=== PATIENT | female | born 1935 | race Caucasian/White ===

== ENCOUNTER 2019-04-07 06:46 | Day surgery (SDC) | payer OTHER ==
[2019-04-07] VITALS (13 sets, daily range): BP systolic 145–181; BP diastolic 64–82; PULSE 52–58; RESP 10–26; Ht 147.3 cm; Wt 90.0 kg
[~2019-04-07] VITALS: Ht 147.3 cm; Wt 90.0 kg
[~2019-04-07 06:46] MED LIST: ATOR20TA38 PO; FELO5TAB35 PO; FOLI-49 PO; LOSA1TAB22 PO
--- NOTE | 2019-04-07 07:59 | PREAC ---
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 Hard of hearing. ) GI: Obesity Surgery & Anesthesia Issues No known issue Meds Anticoagulation: No Beta Leon within 24 hr: No Reason Beta Leon not given: Pt. not on B-Leon Reported Medications Atorvastatin Calcium* (Atorvastatin Calcium*) 20 Mg Tablet, 20 MG PO QHS, #30 TAB 04/07/19 Folic Acid* (Folic Acid*) 1 Mg Tablet, 1 MG PO DAILY, TAB 04/07/19 Felodipine* (Felodipine*) 5 Mg Tab.sr.24h, 5 MG PO DAILY, TAB.SA 04/07/19 Losartan-Hydrochlorothiazide (Losartan-HCTZ) 50-12.5 Mg Tab, 0.25 TAB PO DAILY, TAB 04/07/19 Current Medications Moxifloxacin HCl (Vigamox) 1 drop ONCE ONCE OPER ; Start 04/07/19 at 08:00; Stop 04/07/19 at 08:01 Cyclopentolate HCl (Cyclogyl 2% Oph) 1 drop Q5 MIN X 3 OPER ; Start 04/07/19 at 08:00 Phenylephrine HCl (Ak-Dilate 10%) 1 drop Q5 MIN X3 OPER ; Start 04/07/19 at 08:00 Nepafenac ([place] Oph) 1 drop Q5 MIN X3 OPER ; Start 04/07/19 at 08:00 Meds reviewed: Yes Allergies Coded Allergies: Penicillins (Verified Allergy, Intermediate, 04/07/19) Allergies Reviewed: Yes Labs/Studies Labs Reviewed: Reviewed by anesthesiologist test: N/A Studies: ECG Pre-procedure Exam Airway: Adequate mouth opening, Adequate thyromental dist Mallampati: Mallampati II Teeth: Normal Lung: Normal Heart: Normal ASA Physical Status ASA physical status: 3 Emergency: None Planned Anesthetic General/MAC: MAC, TIVA Planned Pain Management Parenteral pain med, Local by surgeon Pre-operative Attestations Prior to commencing anesthesia and surgery, the patient was re-evaluated, there was verification of: *The patient's identity *The results of appropriate recent lab work and preoperative vital signs *The above evaluation not changing prior to induction *Anesthetic plan, risk benefits, alternative and complications discussed with patient/family; questions answered; patient/family understands, accepts and wishes to proceed. LINDA PIERRE Apr 07, 2019 07:59
[2019-04-07] MEDS ORDERED: hydrALAzine 20 MG INJ IV PRN (08:00)
[2019-04-07] MEDS ORDERED: LABETALOL HCL 20MG INJ IV PRN (08:00)
[2019-04-07] MEDS ORDERED: FENTAnyl 50 MCG/ML VIAL IV PRN ×3 (08:00)
[2019-04-07] MEDS ORDERED: CYCLOPENTOLATE 2% 2 ML OPH OPER SCH (08:00)
[2019-04-07] MEDS ORDERED: OXYCODONE/ACETAMINOPHEN (5/325) TAB PO PRN ×2 (08:00)
[2019-04-07] MEDS ORDERED: PHENYLephrine 10% 5 ML OPH OPER SCH (08:00)
[2019-04-07] MEDS ORDERED: MOXIFLOXACIN 0.5% 3 ML OPH OPER ONE (08:00)
[2019-04-07] MEDS ORDERED: NEPAFENAC 0.1% 3 ML OPH OPER SCH (08:00)
[2019-04-07] MEDS ORDERED: LIDOCAINE 1% (MPF) 30 ML INJ ONE (08:28)
[2019-04-07] MEDS ORDERED: NA BICARB 50 MEQ/50 ML VIAL ONE (08:29)
[2019-04-07] MEDS ORDERED: NA HYALURONATE/CHONDROITIN 0.5 ML SYG ONE (08:29)
[2019-04-07] MEDS ORDERED: TIMOLOL 0.5% 5 ML OPH ONE (08:29)
[2019-04-07] MEDS ORDERED: CARBACHOL 0.01% 1.5 ML OPH INJ ONE (08:29)
[2019-04-07] MEDS ORDERED: EPINEPHrine 1 MG INJ ONE (08:29)
[2019-04-07] MEDS ORDERED: TETRACAINE 0.5% 4 ML OPH ONE (08:29)
[2019-04-07] MEDS ORDERED: LIDOCAINE /PF 2% 10 ML AMPUL ONE (08:29)
--- NOTE | 2019-04-07 08:35 | HPN ---
Date/Time of Note Date/Time of Note DATE: 04/07/19 TIME: 08:35 Interval H&P Admission Note Pt. seen H&P reviewed: No system changes RICH SWANN MD Apr 07, 2019 08:35
[2019-04-07] MEDS ORDERED: FENTAnyl 50 MCG/ML VIAL ONE (09:01)
[2019-04-07] MEDS ORDERED: PROPOFOL 20 ML ONE (09:01)
[2019-04-07] MEDS ORDERED: ONDANSETRON 4 MG INJ ONE ×2 (09:33→10:46)
[2019-04-07] MEDS ORDERED: BUPIVACAINE 0.75% (MPF) 10 ML INJ INJ ONE (09:45)
--- NOTE | 2019-04-07 10:14 | SIPON ---
Date/Time of Note Date/Time of Note DATE: 04/07/19 TIME: 10:07 Operative Report Preoperative Diagnosis nuclear sclerotic cataract right eye Postoperative Diagnosis same Operation/Procedure Performed KPE with posterior chamber lens Surgeon see signature line assisted living associate none Anesthesia: general, MAC Estimated blood loss: none Transfusion Required none Specimen none Grafts/Implants posterior chamber lens implant Complications none RICH SWANN MD Apr 07, 2019 10:14
--- NOTE | 2019-04-07 10:30 | PAC ---
Date/Time of Note Date/Time of Note DATE: 04/07/19 TIME: 10:29 Post-Anesthesia Notes Post-Anesthesia Note Last documented vital signs Vital Signs Date Temp Pulse Resp B/P (MAP) Pulse Ox O2 O2 Flow FiO2 Time Delivery Rate 04/07/19 Simple 8.0 10:21 Mask 04/07/19 56 14 146/68 100 10:15 (94) 04/07/19 98.7 10:10 Activity: WNL Respiratory function: WNL Cardiovascular function: WNL Mental status: Baseline Pain reasonably controlled: Yes Hydration appropriate: Yes Nausea/Vomiting absent: Yes LINDA PIERRE Apr 07, 2019 10:30
--- NOTE | 2019-04-07 15:50 | OPR ---
DATE OF OPERATION: 04/07/2019 SURGEON: Rich Kennedy MD GRAIN SPOUTER: None. PREOPERATIVE DIAGNOSIS: Senile nuclear sclerotic cataract right eye. POSTOPERATIVE DIAGNOSIS: Senile nuclear sclerotic cataract, right eye. OPERATION: Kelman phacoemulsification with implantation of intraocular lens right eye. DESCRIPTION OF PROCEDURE: Following standard preparation and draping of the patient, a lid speculum was placed for immobilization of the lids. A SuperBlade incision was made at the corneal limbal junc tion for access into the anterior chamber. Approximately 0.03 mL of nonpreserved 1% Xylocaine was in stilled into the anterior chamber, and after approximately 5 to 10 seconds, this was replaced with Vi scoat. A clear corneal incision was then made using the 3.2 mm keratome, following which an anterior circular capsulorrhexis was made. The major portion of the lens cortex and nucleus were then disloc ated from the capsular bag using hydrodissection. The KPE tip was introduced into the eye and contro lling tumbling of the lens with a 2-handed technique, the major portion of the lens cortex and nucleu s was removed, maintaining the lens in the plane of the iris. The remaining cortical material was re moved via the irrigating aspirating instrument. The capsular bag and the anterior chamber were now r eformed using Viscoat. The proper power lens was then placed in the capsular bag. The viscoelastic was then removed from the eye and the eye reformed with balanced salt solution. One 10-0 Vicryl sutu re was then used to ensure closure of the corneal incision. The eye was reformed to normal pressure using balanced salt solution. The eye and cul-de-sacs were now simply flooded with 5% Betadine solut ion. One drop of Vigamox and 1 drop of Betagan solution were instilled into the eye. A light pressu re dressing was applied, and the patient was returned to the recovery room in satisfactory condition. Dictated By: RICH COLE/BUD Conf#: [id number] DID#: [id number]
== END 2019-04-07 11:55 | disposition home or self-care (01) ==
LOC: SDS 06:46
PROVIDERS: ATTEND Ophthalmology
DX: H25.11 Age-related nuclear cataract, right eye (principal); I10 Essential (primary) hypertension; Z86.73 Personal history of transient ischemic attack (TIA), and cerebral infarction without residual deficits
CPT/HCPCS: 66984; J0171; J2405; J3010; V2632; Z7512; Z7610